=== PATIENT | male | born 1960 ===

== ENCOUNTER 2016-11-29 09:17 | Day surgery (SDC) | payer OTHER ==
[2016-11-28 13:44] VITALS: BMI 25.0
[2016-11-29] MEDS ORDERED: Lactated Ringer's 1,000 ML IV ONE ×3 (11:15→12:05)
[2016-11-29] MEDS ORDERED: Ciprofloxacin 400mg/200ml D5W 400 MG/200 ML BAG IVPB ONE (11:25)
[2016-11-29] MEDS ORDERED: Iohexol 240 (50 ml) ONE (11:25)
[2016-11-29] MEDS ORDERED: Lidocaine 2% Jelly (Uro-Jet) ONE (11:25)
[2016-11-29] MEDS ORDERED: HYDROmorphone 0.5 mg/0.5 ml ISec IVP PRN ×2 (13:11→13:34)
--- NOTE | 2016-11-29 13:22 | PCM.SURG1 ---
Surgeon's Initial Post Op Note - Surgeon's Notes Surgeon: stevan Recovery Manager: none Type of Anesthesia: IV Sedation Anesthesia Administered By: Pre-Operative Diagnosis: micro hematuria. Operative Findings: bph.urethral stricture. Post-Operative Diagnosis: bph.urethral stricture. Operation Performed: cystoscopy urethral dilatation. Specimen/Specimens Removed: none Estimated Blood Loss: EBL {In ML}: 5 Blood Products Given: N/A Drains Used: No Drains Post-Op Condition: Good Date of Surgery/Procedure: 11/29/16 Time of Surgery/Procedure: 13:26
[2016-11-29 14:14] VITALS: TEMP 97.6
[2016-11-29 14:59] VITALS: BP 140/71; PULSE 73; RESP 16; O2SAT 100
--- NOTE | 2016-11-29 17:35 | RAD ---
HISTORY: URETHRAL STRICTURE COMPARISON: No prior. FINDINGS: BOWEL: Moderate toe signal and right colonic stool retention. . No obstruction. BONES: L5-S1 facet hypertrophic arthrosis. Mild superolateral small cystic arthrosis OTHER FINDINGS: None. IMPRESSION: No bowel obstruction. Stool retention. Hip and inferior lumbar spine arthrosis
--- NOTE | 2016-12-03 05:08 | OP ---
PROCEDURE DATE: 11/29/2016 PREOPERATIVE DIAGNOSIS: Microscopic hematuria. POSTOPERATIVE DIAGNOSIS: Benign prostatic hypertrophy, urethral stricture, bulbous urethra. OPERATION: Cystoscopy, urethral dilatation. SURGEON: Dr. Rojas. GROSS FINDING: Good bladder capacity. No tumors or stones were observed during emptying or filling of the bladder. Ureteral orifices not visualized because of some bleeding. Mild trabeculated bladder and large lateral lobes of the prostate gland meeting at the midline showed prostatic urethra, bulbous urethral stricture which calibrating #18, very rigid stricture. TECHNIQUE: This patient was placed in lithotomy position. The external genitalia was prepped and draped in the usual sterile fashion. Using a #17 panendoscope on the direct vision, we visualized the urethra. We were not able to pass the cystoscope into the bladder. Then, using a #0.35 guidewire which was passed into the bladder. Over the guidewire, Amplatz dilators were passed on the #20, very tight feelings. After this was accomplished, a #17 panendoscope was finally introduced into the bladder. The finding as above. After the procedure was terminated, we tried to pass a #18 Bosch catheter which we were not able to do so. With difficulty, we passed a #16 Bosch catheter. The patient withstood the procedure well and the Bosch was connected to gravity drainage. The patient returned to the recovery room in satisfactory condition. Guille Rojas MD
== END 2016-11-29 15:15 | disposition home or self-care (01) ==
LOC: C.SDS 09:17
PROVIDERS: ATTEND Urology
DX: N40.1 Benign prostatic hyperplasia with lower urinary tract symptoms (principal); R31.0 Gross hematuria; N35.9 Urethral stricture, unspecified
CPT/HCPCS: 52341; 74000; A4358; C1769; J0744; J1170; J7120

== ENCOUNTER 2016-12-28 10:19 | Day surgery (SDC) | payer OTHER ==
[2016-11-28 13:44] VITALS: BMI 25.0
[2016-12-28] MEDS ORDERED: Ciprofloxacin 400mg/200ml D5W 400 MG/200 ML BAG IVPB ONE (12:16)
[2016-12-28] MEDS ORDERED: Iohexol 240 200 ML IJ ONE (12:16)
[2016-12-28] MEDS ORDERED: Lactated Ringer's 1,000 ML IV ONE ×2 (12:20→14:40)
[2016-12-28] MEDS ORDERED: Propofol 10 mg/ml Inj (20 ML) ONE (12:23)
[2016-12-28] MEDS ORDERED: Midazolam 2 MG/2 ML VIAL ONE (12:23)
[2016-12-28] MEDS ORDERED: HYDROmorphone 0.5 mg/0.5 ml ISec IVP PRN (12:31)
[2016-12-28] MEDS: Lidocaine 2% Jelly (Uro-Jet) ONE ×2 (12:41→13:01)
[2016-12-28] MEDS ORDERED: Lidocaine 2% Jelly (Uro-Jet) ONE (13:17)
--- NOTE | 2016-12-28 13:54 | PCM.SURG1 ---
Surgeon's Initial Post Op Note - Surgeon's Notes Surgeon: stevan It Application Development Manager: none Type of Anesthesia: General IV Anesthesia Administered By: [email or web address] eaton Pre-Operative Diagnosis: bulbous urethral stricture. Operative Findings: bulbous urethral stricture. Post-Operative Diagnosis: bulbous urethral stricture. Operation Performed: urethrogram. internal urethrotomy. Specimen/Specimens Removed: none Estimated Blood Loss: EBL {In ML}: 4 Blood Products Given: N/A Drains Used: No Drains Date of Surgery/Procedure: 12/28/16 Time of Surgery/Procedure: 14:00
[2016-12-28 14:48] VITALS: O2SAT 100
--- NOTE | 2016-12-28 15:10 | RAD ---
PROCEDURE: Intraoperative Fluoroscopy. HISTORY: URETHRAL STRICTURE FINDINGS: Fluoroscopic assistance was provided for optical internal urethrotomy.. Please refer to the operative report from
[2016-12-28 16:23] VITALS: BP 138/95; PULSE 74; RESP 14; TEMP 97.2
--- NOTE | 2016-12-29 01:31 | OP ---
PROCEDURE DATE: 12/28/2016 PREOPERATIVE DIAGNOSIS: Bulbous urethral stricture. POSTOPERATIVE DIAGNOSIS: Bulbous urethral stricture. PROCEDURE: Urethrogram and internal urethrotomy. SURGEON: Dr. Guille Rojas. GROSS FINDINGS: Bulbous urethral stricture, which calibrate #16-Polish. TECHNIQUE: This patient was placed first in supine position. The external genitalia were prepped and draped in the usual sterile fashion. A #16-Polish Bosch was placed under tip of the urethra. The balloon was highlighted with 2 mL of normal saline. Holographic dye was instilled in the urethra under fluoroscopy control, which shows or demonstrate the bulbous urethral stricture. The urethrogram was terminated. The patient was placed in lithotomy position, the external genitalia was prepped and draped again in usual sterile fashion. The tip of the urethra was highlighted to #30 because of small meatus. After this was accomplished, urethrogram with a 0-degree length was placed in the urethra and the intima was closed to the stricture and at this moment, the stricture was incised with minimal bleeding. After this was accomplished prior to pass into the bladder a #0.035 guidewire. We tried to over the wire to pass a #22 Bosch catheter, but not able to do so instead, we passed over the wire a #20-Kinsley catheter with less difficulties under fluoroscopy control. After this was accomplished, the wire was removed. The Bosch catheter was normally placed in the bladder. The bladder was thoroughly irrigated. No bleeding was present at this point. The patient returned to recovery room in satisfactory condition and the Bosch took place to gravity drainage. Guille Rojas MD
== END 2016-12-28 15:55 | disposition home or self-care (01) ==
LOC: C.SDS 10:19
PROVIDERS: ATTEND Urology
DX: N35.9 Urethral stricture, unspecified (principal)
CPT/HCPCS: 52276; C1769; J0744; J7120; Q9966